=== PATIENT | female | born 1950 | race Caucasian/White ===

== ENCOUNTER 2017-02-11 11:29 | Emergency (ER) | payer BC, MEDICARE ==
--- NOTE | ~2017-02-11 | EKG ---
PATIENT: LEO SHOEMAKER UNIT #: [id number] Ventricular Rate: 94 BPM Atrial Rate: 94 BPM P-R Interval: 136 ms QRS Duration: 76 ms Q-T Interval: 348 ms QTC Calculation(Bezet): 435 ms P [place]: 25 degrees Calculated R [place]: 19 degrees Calculated T [place]: 4 degrees Diagnosis Line: Normal sinus rhythm Diagnosis Line: Normal ECG Diagnosis Line: When compared with ECG of 01-JAN-2014 11:47, Diagnosis Line: Non-specific change in ST segment in Inferior Diagnosis Line: leads Diagnosis Line: Nonspecific T wave abnormality now evident in Diagnosis Line: Inferior leads Diagnosis Line: Confirmed by BAYRON RIVERA MD ([id number]) on 02/18/2017 Diagnosis Line: 11:53:16 AM INTERPRETING MD: MIGUEL CAMERON
--- NOTE | ~2017-02-11 | CT4 ---
[facility] A Service of [facility] RADIOLOGY TEXT RESULTS PATIENT: LEO SHOEMAKER LOCATION: SED : 48 UNIT #: [id number] AGE: [address]: Shlomo Salazar MD SEX: F ORDER DR: [id number] [place] [id number] E MR#: [id number] #: [id number] NAME: LEO SHOEMAKER : 1950 SEX: F STUDY DATE/TIME: 02/11/2017 UNIT: SED ROOM: STUDY DESCRIPTION: CT Abd and Pelv Wo Cont Attending Physician: Shlomo Salazar M.D. Referring Physician: Shlomo Salazar M.D. Ordering Physician: Shlomo Salazar M.D. Primary Care Physician: Paul Sheehan M.D. MEDICAL IMAGING REPORT This report is preliminary unless electronic signature is present. EXAM CT abdomen and pelvis without contrast 02/11/2017 1219 hours HISTORY 66-year-old woman complaining of left mid lower back pain since yesterday afternoon. No known injury. COMPARISON 03/04/2010 TECHNIQUE Helical noncontrasted images were obtained from the lung bases through the pubic symphysis. Sagittal and coronal reconstructions were performed. Total exam DLP 907 mGy-cm. This CT exam was performed with one or more of the following radiation dose reduction techniques: automatic exposure control, adjustment of mA and/or kV according to patient size, and iterative reconstruction. FINDINGS Images through the lung bases demonstrate linear dependent density, left greater than right base, likely atelectasis or scar. There is no effusion. Images through the abdomen demonstrate a normal noncontrasted appearance of the liver and spleen. There are multiple stones filling the gallbladder, which are new since 2009. The gallbladder is contracted. There is no definite gallbladder wall thickening. There is no intra- or extrahepatic bile duct dilatation. The spleen, pancreas, and pancreatic duct are normal. The adrenal glands are normal. The kidneys demonstrate no intrarenal stones. There is no ureterectasis or ureteral calculus. There is cystic change of bilateral renal shahida, most consistent with parapelvic cysts. These are present on the 03/04/2010 study, but are slightly increased in size. The abdominal aorta [facility] A Service of [facility] RADIOLOGY TEXT RESULTS PATIENT: LEO SHOEMAKER [place] [facility] [place]IT #: [id number] AGE: [address]: Shlomo Salazar MD SEX: F ORDER DR: is normal in caliber. There is no adenopathy or ascites. The stomach and small bowel are normal. The terminal ileum and appendix are normal. There is no colonic wall thickening. There are a few scattered colonic diverticula at the distal descending colon and sigmoid colon without CT evidence of diverticulitis. CT pelvis demonstrates a normal appearance to the uterus and ovaries. There is no free fluid. Bone window images demonstrate no vertebral fracture. There is no significant disc height loss. There is very mild facet arthropathy. There is no central canal stenosis. The sacrum appears mildly osteopenic. There is mild degenerative change at the sacroiliac joints. No fractures seen. IMPRESSION 1. No acute findings in the abdomen or pelvis. 2. There are bilateral parapelvic cysts which were present on the CT of 03/04/2010, but have increased slightly in size. No renal or ureteral calculi. 3. No lumbar fracture or subluxation. No significant disc height loss. There is minimal facet arthritis. 4. The sacrum appears osteopenic. No fracture is seen. 5. Multiple gallstones in the gallbladder. These are new since the CT of 03/04/2010. There is no suggested gallbladder wall thickening or inflammation. No bile duct dilatation. Dictated by... Alysia Stanford M.D. THIS IS AN ELECTRONICALLY VERIFIED REPORT Alysia Stanford M.D. at 02/11/2017 2:30 PM BHARAT/brii TD: 02/11/2017 13:51 JOB #: [id number] MEDICAL IMAGING REPORT Page 1 of 1
[2017-02-11 11:08] LABS: BASOPHIL# 0.1 X10e3 (0-0.3); BASOPHIL% 0.8 % (0-2.5); EOSINOPHIL# 0.2 X10e3 (0-0.7); EOSINOPHIL% 3.2 % (0.0-7.0); HEMATOCRIT 41.3 % (35.0-45.0); HEMOGLOBIN 13.9 gm/dL (12.0-16.0); LYMPHOCYTE# 1.7 X10e3 (1.0-3.5); LYMPHOCYTE% 25.7 % (17.0-45.0); MEAN CELL VOLUME 88.7 FL (83-96); MEAN CORPUSCULAR HEMOGLOBIN 29.8 PG (28-34); MEAN CORPUSCULAR HGB CONC 33.6 g/dL (30-36); MONOCYTE# 0.6 X10e3 (0-1.0); MONOCYTE% 9.2 % (3.0-12.0); NEUTROPHIL% 61.1 % (40-75); PLATELET COUNT 253 X10e3 (140-420); RED BLOOD COUNT 4.66 X10e (3.90-5.30); RED CELL DISTRIBUTION WIDTH 13.7 % (11.0-15.5); WHITE BLOOD COUNT 6.6 X10e3 (4.0-10.5)
[2017-02-11 11:13] LABS: DIFF IND NO
[2017-02-11 11:23] LABS: URINE SOURCE CLEAN CATCH
[2017-02-11 11:25] LABS: MICRO INDICATED? YES; URINE APPEARANCE CLEAR; URINE BILIRUBIN NEG (NEG); URINE BLOOD TRACE-LYSED (NEG); URINE COLOR YELLOW; URINE GLUCOSE NEG (NORM); URINE KETONE NEG (NEG); URINE LEUKOCYTE ESTERASE 1+ (NEG); URINE NITRATE NEG (NEG); URINE PROTEIN NEG (NEG); URINE UROBILINOGEN 0.2 MG/DL (NORM)
[2017-02-11 11:27] LABS: ALBUMIN SERUM 4.2 g/dL (3.5-5.0); BILIRUBIN, DIRECT 0.1 mg/dL (0.0-0.2); BILIRUBIN,INDIRECT 0.2 mg/dL (0.0-0.9); BILIRUBIN,TOTAL 0.3 mg/dL (0.2-2.0); BUN/CREATININE RATIO 22.85; CALCIUM SERUM 9.5 mg/dL (8.4-10.2); CREATININE SERUM 0.7 mg/dL (0.6-1.4); GLOM FILT RATE Estimated 89.7 mL/min (>60); POTASSIUM 3.9 mmol/L (3.5-5.1)
[~2017-02-11 11:29] MED LIST: ANEXSIA 7.5/3251 TA1 PO; CIPRO PO; FLOMAX0.4 M1 DOB; GABAPENTIN400 M2 PO; HYDROCODONE-APA1 T41; TOPAMAX; TYLOX1 CAP 5/50 DOB; [UNRECOGNIZED DRUG - OTHER]
[2017-02-11 11:33] LABS: POC - CKMB <1.0 ng/mL (0.0-7.9); POC - TROPONIN <0.05 ng/mL (<=0.05)
[2017-02-11 11:37] LABS: CULTURE INDICATED? YES; URINE BACTERIA 1+ (NEG); URINE RBC 0-2 /[HPF] (0-2); URINE SQUAMOUS EPITHELIAL CELL FEW /[HPF]
[2017-02-11 11:38] LABS: URINE CRYSTALS CALCIUM OXALATE /[HPF]; URINE MUCUS PRESENT
== END 2017-02-11 13:10 | disposition home or self-care (01) ==
LOC: SED 11:29
PROVIDERS: Emergency Medicine
DX: N39.0 Urinary tract infection, site not specified (principal)
CPT/HCPCS: 36415; 74176; 80048; 80076; 81003; 82553; 83690; 84484; 85025; 87086; 93005; 96374; 99284; J2270